=== PATIENT | male | born 1985 | race Caucasian/White ===

== ENCOUNTER 2019-04-13 09:26 | Emergency (ER) | payer BC ==
[2019-04-13 09:38] VITALS: TEMP 98.1
[2019-04-13] MEDS ORDERED: cloNIDine HCL 0.2 MG TAB PO STA (10:04)
--- NOTE | 2019-04-13 10:05 | ED ---
Extremity Problem HPI - General Chief complaint: Extremity Problem,Nontraumatic Stated complaint: Leg swelling/redness Time Seen by Provider: 04/13/19 09:48 Source: patient, RN notes reviewed Mode of arrival: ambulatory Limitations: no limitations - History of Present Illness Initial comments: 33-year-old male presents emergency from chief complaint of left calf pain. Patient states started earlier today while working on his truck. Patient was seen at [facility] and sent over to rule out DVT. Patient states that there is an area that was red but states that is read as it was before. He denies any chest pain or shortness breath no history DVT. 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 Patient denies any other complaints at this time. - Related Data Previous Rx's Medication Instructions Recorded Ibuprofen [Motrin] 600 mg PO Q8HR PRN #30 tab 04/13/19 Allergies Allergy/AdvReac Type Severity Reaction Status Date / Time No Known Allergies Allergy Verified 04/13/19 09:58 Review of Systems ROS Statement: Those systems with pertinent positive or pertinent negative responses have been documented in the HPI. ROS Other: All systems not noted in ROS Statement are negative. Past Medical History Additional Past Medical History / Comment(s): cellulitis History of Any Multi-Drug Resistant Organisms: None Reported Past Surgical History: No Surgical Hx Reported Past Psychological History: No Psychological Hx Reported Smoking Status: Never smoker Past Alcohol Use History: None Reported Past Drug Use History: None Reported General Exam Limitations: no limitations General appearance: alert, in no apparent distress Head exam: Present: atraumatic, normocephalic, normal inspection Neck exam: Present: normal inspection, full ROM. Absent: tenderness, meningismus, lymphadenopathy Respiratory exam: Present: normal lung sounds bilaterally. Absent: respiratory distress, wheezes, rales, rhonchi, stridor Cardiovascular Exam: Present: regular rate, normal rhythm, normal heart sounds. Absent: systolic murmur, diastolic murmur, rubs, gallop, clicks Extremities exam: Present: other (Left calf there is a firm nonfluctuant area, mild tenderness to palpation pedal pulses equal bilaterally, there is no significant swelling left versus the right, full range of motion full-strength) Neurological exam: Present: alert, oriented X3, CN II-XII intact Skin exam: Present: warm, dry, intact, normal color. Absent: rash Course Vital Signs 04/13/19 04/13/19 09:34 09:58 Temperature 98.1 F Pulse Rate 85 Respiratory 18 Rate Blood Pressure 164/100 190/100 O2 Sat by Pulse 98 Oximetry Medical Decision Making - Medical Decision Making 33-year-old presented for left calf pain uS negative for acute DVT. There is a palpable area that feels consistent with superficial thrombophlebitis though not evident on ultrasound. Patient be started on anti-inflammatories. Return parameters were discussed. Disposition Clinical Impression: Pain of left calf Disposition: HOME SELF-CARE Condition: Stable Instructions (If sedation given, give patient instructions): Leg Cramps (ED), Superficial Thrombophlebitis (ED) Additional Instructions: Please return to the Emergency Department if symptoms worsen or any other concerns. Prescriptions: Ibuprofen [Motrin] 600 mg PO Q8HR PRN #30 tab PRN Reason: Pain Is patient prescribed a controlled substance at d/c from ED?: No Referrals: None,Stated [Primary Care Provider] - 1-2 days Time of Disposition: 11:00
--- NOTE | 2019-04-13 10:47 | US ---
EXAMINATION TYPE: US venous doppler duplex LE LT DATE OF EXAM: 04/13/2019 10:35 AM COMPARISON: NONE CLINICAL HISTORY: calf pain. Patient recently hit is lower leg getting in or out of a truck, no h/o d vt, 400lbs SIDE PERFORMED: TECHNIQUE: The lower extremity deep venous system is examined utilizing real time linear array sonog eloise with graded compression, doppler sonography and color-flow sonography. VESSELS IMAGED: External Iliac Vein (EIV) Common Femoral Vein Deep Femoral Vein Greater Saphenous Vein * Femoral Vein Popliteal Vein Small Saphenous Vein * Proximal Calf Veins (* superficial vessels) slightly limited study due to body habitus, unable to obtain compression images within left groin b ut blood flow was detected. Left Leg: Appears negative for DVT or SVT, scanned area of red palpable and swelling but no SVT was seen at that location. IMPRESSION: No sonographic evidence of deep venous thrombosis nor superficial venous thrombosis. Part icular attention was paid to the area of swelling. Subcutaneous edema is seen without superficial or deep venous thrombosis. No focal fluid collection.
[2019-04-13 11:54] VITALS: BP 140/100; PULSE 86; RESP 16
== END 2019-04-13 11:54 | disposition home or self-care (01) ==
LOC: EC 09:26
DX: I82.812 Embolism and thrombosis of superficial veins of left lower extremity (principal)
CPT/HCPCS: 99283

== ENCOUNTER 2020-08-20 18:58 | Emergency (ER) | payer BC ==
--- NOTE | 2020-08-20 19:32 | ED ---
Male Urogenital HPI - General Chief complaint: Urogenital Stated complaint: Male Time Seen by Provider: 08/20/20 19:15 Source: patient, RN notes reviewed Mode of arrival: ambulatory Limitations: no limitations - History of Present Illness Initial comments: This a 35-year-old male presents emergency Department chief complaints are testicular pain. Patient states that it started Ji 4 hours ago severe pain. 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 Patient states pain is now really decreased. Patient states his right testicle swollen states it felt better if he lifted up. Patient was sent by PCP rel toward him. Patient did have urinalysis which showed evidence of wbc's and states he's noticed some sediment patient denies any history of urinary tract infection patient had hydrocele surgery at age 4. - Related Data Previous Rx's Medication Instructions Recorded Ibuprofen [Motrin] 600 mg PO Q8HR PRN #30 tab 04/13/19 Ibuprofen [Motrin] 600 mg PO Q8HR PRN #20 tab 08/20/20 Sulfamethox-Tmp 800-160Mg [Bactrim 1 each PO Q12HR #20 tab 08/20/20 Ds] Allergies Allergy/AdvReac Type Severity Reaction Status Date / Time No Known Allergies Allergy Verified 08/20/20 19:04 Review of Systems ROS Statement: Those systems with pertinent positive or pertinent negative responses have been documented in the HPI. ROS Other: All systems not noted in ROS Statement are negative. Past Medical History Additional Past Medical History / Comment(s): cellulitis History of Any Multi-Drug Resistant Organisms: None Reported Past Surgical History: No Surgical Hx Reported Past Psychological History: No Psychological Hx Reported Smoking Status: Never smoker Past Alcohol Use History: None Reported Past Drug Use History: None Reported General Exam Limitations: no limitations General appearance: alert, in no apparent distress Head exam: Present: atraumatic, normocephalic, normal inspection Eye exam: Present: normal appearance, PERRL, EOMI. Absent: scleral icterus, conjunctival injection, periorbital swelling ENT exam: Present: normal exam, normal oropharynx, mucous membranes moist Neck exam: Present: normal inspection, full ROM. Absent: tenderness, meningismus, lymphadenopathy Respiratory exam: Present: normal lung sounds bilaterally. Absent: respiratory distress, wheezes, rales, rhonchi, stridor Cardiovascular Exam: Present: regular rate, normal rhythm, normal heart sounds. Absent: systolic murmur, diastolic murmur, rubs, gallop, clicks exam: Present: testicular tenderness, scrotal swelling. Absent: normal inspection Skin exam: Present: warm, dry, intact, normal color. Absent: rash Course Vital Signs 08/20/20 08/20/20 19:00 21:15 Temperature 98.1 F Pulse Rate 110 H 85 Respiratory 18 20 Rate Blood Pressure 162/98 169/102 O2 Sat by Pulse 99 100 Oximetry Medical Decision Making - Medical Decision Making 35-year-old presented for scrotal pain and swelling patient has evidence of urinary tract infection there is no hydrocele or epididymitis. There is no evidence of abscess. She states pain is improved. Patient we discharged stable condition with oral antibiotics. - Lab Data Lab Results 08/20/20 Range/Units 19:38 Urine Color Yellow Urine Appearance Turbid (Clear) Urine pH 6.0 (5.0-8.0) Ur Specific [place] 1.024 (1.001-1.035) Urine Protein 2+ H (Negative) Urine Glucose (UA) Negative (Negative) Urine Ketones Negative (Negative) Urine Blood Large H (Negative) Urine Nitrite Negative (Negative) Urine Bilirubin Negative (Negative) Urine Urobilinogen <2.0 (<2.0) mg/dL Ur Leukocyte Esterase Large H (Negative) Urine RBC >182 H (0-5) /hpf Urine WBC >182 H (0-5) /hpf Urine WBC Clumps Moderate H (None) /hpf Ur Squamous Epith Cells 1 (0-4) /hpf Urine Bacteria Rare H (None) /hpf Urine Mucus Occasional H (None) /hpf Disposition Clinical Impression: Varicocele, UTI (urinary tract infection) Disposition: HOME SELF-CARE Condition: Stable Instructions (If sedation given, give patient instructions): Urinary Tract Infection in Men (ED) Additional Instructions: Please return to the Emergency Department if symptoms worsen or any other concerns. Prescriptions: Sulfamethox-Tmp 800-160Mg [Bactrim Ds] 1 each PO Q12HR #20 tab Ibuprofen [Motrin] 600 mg PO Q8HR PRN #20 tab PRN Reason: Pain Is patient prescribed a controlled substance at d/c from ED?: No Referrals: Geno Bain MD [Primary Care Provider] - 1-2 days Time of Disposition: 21:39
[2020-08-20 19:57] LABS: Appearance,Urine Turbid (Clear); Bacteria,Urine Rare /hpf; Bilirubin,Urine Negative (Negative); Blood,Urine Large (Negative); Color,Urine Yellow; Glucose,Urine (UA) Negative (Negative); Ketones,Urine Negative (Negative); Leukocyte Esterase,Urine Large (Negative); Mucus,Urine Occasional /hpf; Nitrite,Urine Negative (Negative); Protein,Urine 2+ (Negative); RBC,Urine >182 /hpf (0-5); Specific Gravity,Urine 1.024 (1.001-1.035); Squamous Epithelial Cell,Urine 1 /hpf (0-4); Urobilinogen,Urine <2.0 mg/dL (<2.0); WBC,Urine >182 /hpf (0-5)
[2020-08-20] MEDS ORDERED: IBUPROFEN 600 MG TAB PO STA (21:24)
[2020-08-20 21:34] VITALS: RESP 20
--- NOTE | 2020-08-20 21:35 | US ---
EXAMINATION TYPE: US scrotum with doppler. Grayscale and color Doppler Duplex imaging performed of car[place]ina waggoner scrotum. DATE OF EXAM: 08/20/2020 COMPARISON: NONE CLINICAL HISTORY: pain. Pain x 1 day. Hx surgery on testicle, patient is unsure what procedure they d id on his testicle as a kid. EXAM MEASUREMENTS: TESTICLES: Right Testicle: 5.7 x 3.9 x 3.4 cm Left Testicle: 5.8 x 4.3 x 4.1 cm EPIDIDYMIS HEAD: Right Epididymis: 0.9 x 1.4 x 1.6 cm Left Epididymis: Not visualized at this time. Doppler performed to assess for testicular vascularity; bilateral color flow and waveforms are seen. Presence of hydroceles: Anechoic area seen in right side: 0.8 x 1.6 x 1.2 cm. Presence of varicoceles: Not visualized. IMPRESSION: No evidence of epididymitis or orchitis. Tiny right-sided varicocele. If patient continue s to symptomatic, a repeat ultrasound may be considered.
[2020-08-20] MEDS ORDERED: AZITHROMYCIN 250 MG TAB PO STA (21:38)
[2020-08-20] MEDS ORDERED: cefTRIAXone 1,000 MG VIAL (IM USE) IM STA (21:38)
[2020-08-20 22:18] VITALS: BP 172/104; PULSE 88; TEMP 98
== END 2020-08-20 22:18 | disposition home or self-care (01) ==
LOC: EC 18:58
DX: I86.1 Scrotal varices (principal); N39.0 Urinary tract infection, site not specified
CPT/HCPCS: 81001; 87086; 87077; 87186; 93975; 76870; 99284; 96372; J0696